=== PATIENT | male | born 1960 | race Caucasian/White ===

== ENCOUNTER 2020-03-14 16:39 | Inpatient (IN) | payer SELFPAY ==
[~2020-03-14 16:39] MED LIST: Iopamidol-370 76% 500 ML 1 ML ONE
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
[2020-03-14 18:02] LABS: #Basophils 0.1 thou/uL (0.0-0.2); #Eosinphils 0.1 thou/uL (0.0-0.7); #Monocytes 0.7 thou/uL (0.11-0.59); #Neutrophils 10.1 thou/uL (1.40-6.50); %Basophils 0.5 % (0.0-1.0); %Eosinophils 0.4 % (0.0-10.0); %Lymphocytes 15.7 % (21.0-51.0); %Monocytes 5.5 % (0.0-10.0); %Neutrophils 77.9 % (42.0-75.0); Hemoglobin 15.6 g/dL (14.0-18.0); Mean Corpuscular HGB CONC 36.4 g/dL (32.0-36.0); Mean Corpuscular Volume 90.6 fL (78.0-98.0); Mean Platelet Volume 7.2 fL (7.4-10.4); Platelet Count 242 thou/uL (130-400); RBC Distribution Width 11.6 % (11.5-14.5); Red Blood Cell (RBC) Count 4.75 mill/uL (4.70-6.10)
[2020-03-14] MEDS ORDERED: Lidocaine 1% (PF) 30 ML VIAL ONE (18:11)
[2020-03-14] MEDS ORDERED: Morphine 4 MG/ML VIAL ONE ×2 (18:12→23:51)
[2020-03-14] MEDS ORDERED: Ondansetron PF 4 MG/2 ML Vial ONE (18:12)
[2020-03-14 18:23] LABS: ALT (SGPT) 28 U/L (8-55); AST (SGOT) 31 U/L (5-34); Albumin 4.1 g/dL (3.4-4.8); Alkaline Phosphatase 64 U/L (40-110); Anion Gap 19 mmol/L (10-20); BUN (Urea Nitrogen) 29 mg/dL (8.4-25.7); Bilirubin, Total 0.8 mg/dL (0.2-1.2); Calc. Creatinine Clearance 0 mL/min (70-130); Calcium 9.5 mg/dL (7.8-10.44); Carbon Dioxide 19 mmol/L (23-31); Chloride 100 mmol/L (98-107); Estimated GFR-MDRD 44; Globulin 3.7 g/dL (2.4-3.5); Glucose 177 mg/dL (80-115); Lipase 58 U/L (8-78); Potassium 3.2 mmol/L (3.5-5.1); Protein, Total 7.8 g/dL (5.8-8.1); Sodium 135 mmol/L (136-145)
[2020-03-14 18:26] LABS: Bacteria/HPF None Seen HPF (None Seen); Bilirubin Negative (Negative); Blood, Urine 1+ (Negative); Clarity Clear (Clear); Glucose, Urine (Dipstick) Normal (Negative); Ketone, Urine Negative (Negative); Leukocyte Negative Leu/uL (Negative); Nitrite Negative (Negative); Protein, Urine (Dipstick) 50 mg/dL (Neg-Trace); Squamous Epithelial 0-3 HPF (0-3); Urobilinogen Normal mg/dL (Less than 2); WBC/HPF 21-50 HPF (0-3); pH, Urine 5.5 (5.0-9.0)
[2020-03-14 18:28] LABS: Specific Gravity, Urine 1.046 (1.002-1.036)
[2020-03-14 18:43] LABS: Phosphorus 3.9 mg/dL (2.3-4.7)
[2020-03-14] MEDS ORDERED: Boostrix 0.5 ML (Tdap) VIAL ONE (18:53)
[2020-03-14] MEDS ORDERED: Potassium Chloride 40 MEQ in Premix Bag 1 BAG IVPB SCH (19:30)
[2020-03-14 19:36] LABS: Amphetamine Not Detected (NotDetected); Barbiturates Screen Not Detected (NotDetected); Benzodiazepine Screen Not Detected (NotDetected); Cocaine Metabolite Screen Not Detected (NotDetected); Medtox Control Line Valid? VALID (VALID); Medtox Reader # READER 4; Methadone Not Detected (NotDetected); Methamphetamine Not Detected (NotDetected); Opiate Screen Not Detected (NotDetected); Oxycodone Screen Not Detected (NotDetected); Phencyclidine (PCP) Not Detected (NotDetected); THC/Cannabinoid Screen Detected (NotDetected); Tricyclic Screen Not Detected (NotDetected)
[2020-03-14] MEDS ORDERED: Dextrose 5% in Water 1,000 ML IV PRN (20:11)
[2020-03-14] MEDS ORDERED: Dextrose 50% Abboject 50 ML SYRINGE SLOW IVP PRN (20:11)
[2020-03-14] MEDS ORDERED: Ondansetron PF 4 MG/2 ML Vial IVP PRN (20:11)
[2020-03-14] MEDS ORDERED: traMADol HCl 50 MG TAB PO PRN (20:14)
[2020-03-14] MEDS ORDERED: Sodium Chloride 0.9% 1,000 ML IV SCH (20:15)
--- NOTE | 2020-03-14 20:32 | RAD ---
PORTABLE CHEST: 03/14/20 HISTORY: Injury. Comparison made to film earlier at 4:48 p.m. Numerous displaced left sided rib fractures again noted. No evidence of significant pneumothorax. No consolidation or infiltrate. No evidence of interval change. IMPRESSION: Stable chest. POS: AGW
--- NOTE | 2020-03-14 20:34 | RAD ---
RIGHT HAND: 03/14/20 Three views. HISTORY: Injury. FINDINGS/IMPRESSION: There are degenerative changes in the carpals and in the IP joints. No acute fracture identified. POS: AGW
[2020-03-14] MEDS ORDERED: Insulin Regular 300 UNITS/3 ML VIAL SC PRN ×2 (20:47)
[2020-03-14] MEDS ORDERED: Magnesium 2 GM/50 ML 2 GM in Premix Bag 1 BAG IVPB SCH (21:00)
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
[2020-03-14 22:10] LABS: Hemoglobin A1c 5.4 % (4.0-6.0)
[2020-03-14 22:16] LABS: Lactic Acid 2.9 mmol/L (0.5-2.2)
[2020-03-14] MEDS ORDERED: Potassium Chloride 40 MEQ in Sodium Chloride 0.9% 250 ML 250 ML IVPB SCH (23:45)
[2020-03-14] MEDS ORDERED: CEFAZOLIN 2 GM in Premix Bag 1 BAG IVPB SCH (23:45)
[2020-03-14] MEDS: Morphine 4 MG/ML VIAL SLOW IVP PRN (23:56)
[2020-03-15] MEDS ORDERED: Famotidine 20 MG TAB ONE (00:14)
[2020-03-15] MEDS ORDERED: Bacitracin 1 PK ONE ×2 (00:14→00:21)
[2020-03-15] MEDS ORDERED: Magnesium 2 GM/50 ML BAG (IN WATER) ONE (00:14)
[2020-03-15] MEDS ORDERED: traMADol HCl 50 MG TAB ONE (00:17)
[2020-03-15] MEDS ORDERED: Acetaminophen 500 MG TAB ONE (00:17)
[2020-03-15] MEDS ORDERED: Silver Sulfadiazine 50 GM TUBE ONE (00:21)
[2020-03-15] MEDS: Acetaminophen 500 MG TAB PO SCH ×5 (00:57→21:28)
[2020-03-15] MEDS: traMADol HCl 50 MG TAB PO SCH ×5 (00:59→21:27)
[2020-03-15] MEDS: Bacitracin 1 PK TOP SCH ×3 (01:00→21:28)
[2020-03-15] MEDS: Famotidine 20 MG TAB PO SCH ×3 (01:00→21:27)
[2020-03-15] MEDS: Senokot S 8.6-50 MG TAB PO SCH ×3 (01:00→21:27)
[2020-03-15] MEDS: Gabapentin 300 MG CAP PO SCH ×4 (01:00→21:27)
[2020-03-15] MEDS: Silver Sulfadiazine 50 GM TUBE TOP SCH ×3 (01:01→21:29)
[2020-03-15 05:21] VITALS: BMI 40.5
[2020-03-15 08:53] LABS: Anion Gap 18 mmol/L (10-20); BUN (Urea Nitrogen) 34 mg/dL (8.4-25.7); Calc. Creatinine Clearance 114 mL/min (70-130); Calcium 8.8 mg/dL (7.8-10.44); Carbon Dioxide 17 mmol/L (23-31); Chloride 108 mmol/L (98-107); Estimated GFR-MDRD 66; Glucose 149 mg/dL (80-115); Magnesium 2.4 mg/dL (1.6-2.6); Phosphorus 4.1 mg/dL (2.3-4.7); Potassium 4.9 mmol/L (3.5-5.1); Sodium 138 mmol/L (136-145)
[2020-03-15] MEDS: Morphine 4 MG/ML VIAL SLOW IVP PRN (09:12)
[2020-03-15] MEDS: Polyethylene Glycol 3350 17 GM Packet PO SCH (09:13)
[2020-03-15] MEDS: Enoxaparin Sodium 40 MG/0.4 ML SYRINGE SC SCH (09:45)
[2020-03-15] MEDS ORDERED: Ketorolac Tromethamine 30 MG/ML VIAL IVP SCH (09:45)
--- NOTE | 2020-03-15 09:55 | RAD ---
Exam: Chest one view HISTORY:Post traumatic changes in the left lung. Left-sided pleural effusion. Comparison: 03/14/2020 FINDINGS: Cardiac silhouette:Enlarged cardiac silhouette Aorta: Unremarkable Pulmonary vessels: Normal Costophrenic angles: Small bilateral effusions. LUNGS: Post traumatic changes in the left lower lobe. Pneumothorax: None Osseous abnormalities: No demonstration multiple left rib fractures. Left scapular fracture is also n oted. IMPRESSION: Stable posttraumatic changes in the left hemithorax.
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
[2020-03-15] MEDS: Ibuprofen 600 MG TAB PO SCH ×2 (10:43→17:44)
[2020-03-15 11:39] LABS: #Eosinphils 0.1 thou/uL (0.0-0.7); #Lymphocytes 2.3 thou/uL (1.20-3.40); #Monocytes 1.2 thou/uL (0.11-0.59); #Neutrophils 4.7 thou/uL (1.40-6.50); %Basophils 0.5 % (0.0-1.0); %Eosinophils 1.1 % (0.0-10.0); %Lymphocytes 27.9 % (21.0-51.0); %Neutrophils 56.6 % (42.0-75.0); Hemoglobin 13.6 g/dL (14.0-18.0); Mean Corpuscular HGB CONC 35.3 g/dL (32.0-36.0); Mean Corpuscular Hemoglobin 32.7 pg (27.0-31.0); Mean Corpuscular Volume 92.6 fL (78.0-98.0); Mean Platelet Volume 7.1 fL (7.4-10.4); Platelet Count 178 thou/uL (130-400); RBC Distribution Width 11.8 % (11.5-14.5); Red Blood Cell (RBC) Count 4.15 mill/uL (4.70-6.10); White Blood Cell (WBC) Count 8.4 thou/uL (4.8-10.8)
[2020-03-15 12:47] LABS: SARS-CoV-2 MS2 Positive; SARS-CoV-2 N Gene Negative; SARS-CoV-2 S Gene Negative; SARS-CoV-2 by NAA Not Detected (NotDetected); SARS-CoV-2 orf1ab Negative
[2020-03-15] MEDS: Atorvastatin Calcium 20 MG TAB PO SCH (21:26)
[2020-03-16] MEDS: Acetaminophen 500 MG TAB PO SCH ×2 (01:25→09:18)
[2020-03-16] MEDS: Ibuprofen 600 MG TAB PO SCH ×3 (01:25→18:14)
[2020-03-16] MEDS: Morphine 4 MG/ML VIAL SLOW IVP PRN (06:14)
[2020-03-16] MEDS: traMADol HCl 50 MG TAB PO SCH ×5 (06:17→20:10)
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
[2020-03-16] MEDS: Gabapentin 300 MG CAP PO SCH ×3 (09:19→20:10)
[2020-03-16] MEDS: Enoxaparin Sodium 40 MG/0.4 ML SYRINGE SC SCH (09:19)
[2020-03-16] MEDS: Bacitracin 1 PK TOP SCH ×2 (09:19→20:12)
[2020-03-16] MEDS: Famotidine 20 MG TAB PO SCH ×2 (09:19→20:10)
[2020-03-16] MEDS: Senokot S 8.6-50 MG TAB PO SCH ×2 (09:20→20:18)
[2020-03-16] MEDS: Polyethylene Glycol 3350 17 GM Packet PO SCH ×2 (09:20→09:24)
[2020-03-16] MEDS: Silver Sulfadiazine 50 GM TUBE TOP SCH ×2 (09:20→20:12)
[2020-03-16 13:56] LABS: #Eosinphils 0.1 thou/uL (0.0-0.7); #Lymphocytes 1.9 thou/uL (1.20-3.40); #Monocytes 0.7 thou/uL (0.11-0.59); #Neutrophils 4.7 thou/uL (1.40-6.50); %Basophils 0.5 % (0.0-1.0); %Eosinophils 0.9 % (0.0-10.0); %Lymphocytes 25.2 % (21.0-51.0); %Monocytes 9.8 % (0.0-10.0); %Neutrophils 63.6 % (42.0-75.0); Mean Corpuscular HGB CONC 35.7 g/dL (32.0-36.0); Mean Corpuscular Hemoglobin 33.5 pg (27.0-31.0); Mean Corpuscular Volume 93.7 fL (78.0-98.0); Mean Platelet Volume 7.1 fL (7.4-10.4); Platelet Count 179 thou/uL (130-400); RBC Distribution Width 11.5 % (11.5-14.5); Red Blood Cell (RBC) Count 3.89 mill/uL (4.70-6.10); White Blood Cell (WBC) Count 7.4 thou/uL (4.8-10.8)
[2020-03-16 14:06] LABS: Chloride 102 mmol/L (98-107); Potassium 3.6 mmol/L (3.5-5.1); Sodium 134 mmol/L (136-145)
[2020-03-16 14:07] LABS: Calcium 8.5 mg/dL (7.8-10.44); Glucose 128 mg/dL (80-115)
[2020-03-16 14:09] LABS: Anion Gap 17 mmol/L (10-20); Carbon Dioxide 19 mmol/L (23-31)
[2020-03-16 14:10] LABS: Phosphorus 3.6 mg/dL (2.3-4.7)
[2020-03-16 14:11] LABS: Calc. Creatinine Clearance 96 mL/min (70-130); Estimated GFR-MDRD 54
[2020-03-16 14:12] LABS: BUN (Urea Nitrogen) 34 mg/dL (8.4-25.7)
[2020-03-16 14:13] LABS: Magnesium 2.3 mg/dL (1.6-2.6)
[2020-03-16] MEDS ORDERED: Acetaminophen/Codeine 30-300mg Tablet PO PRN ×3 (14:14→23:44)
[2020-03-16] MEDS: Cyclobenzaprine 10 MG TAB PO PRN ×2 (14:32→20:19)
[2020-03-16] MEDS: Acetaminophen 325 MG TAB PO SCH ×2 (14:47→20:08)
[2020-03-16] MEDS: Atorvastatin Calcium 20 MG TAB PO SCH (20:10)
[2020-03-16] MEDS: Niacin 500 MG TAB PO SCH (20:10)
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
[2020-03-16] MEDS ORDERED: Sodium Chloride 0.9% 500 ML IV SCH (23:59)
[2020-03-17] MEDS: Acetaminophen/Codeine 30-300mg Tablet PO SCH ×4 (00:23→17:09)
[2020-03-17] MEDS: Acetaminophen 325 MG TAB PO SCH ×4 (02:48→20:46)
[2020-03-17] MEDS: Cyclobenzaprine 10 MG TAB PO PRN ×2 (05:14→17:09)
[2020-03-17] MEDS ORDERED: Lisinopril 20 MG TAB PO SCH (09:00)
[2020-03-17] MEDS: Gabapentin 300 MG CAP PO SCH ×3 (09:23→20:47)
[2020-03-17] MEDS: Enoxaparin Sodium 40 MG/0.4 ML SYRINGE SC SCH (09:23)
[2020-03-17] MEDS: Famotidine 20 MG TAB PO SCH ×2 (09:23→20:46)
[2020-03-17] MEDS: Silver Sulfadiazine 50 GM TUBE TOP SCH ×2 (09:24→20:50)
[2020-03-17] MEDS: Bacitracin 1 PK TOP SCH ×2 (09:24→20:49)
[2020-03-17] MEDS: Polyethylene Glycol 3350 17 GM Packet PO SCH (09:24)
[2020-03-17] MEDS: Senokot S 8.6-50 MG TAB PO SCH ×2 (09:28→20:46)
[2020-03-17 12:35] LABS: Anion Gap 19 mmol/L (10-20); BUN (Urea Nitrogen) 49 mg/dL (8.4-25.7); Calc. Creatinine Clearance 54 mL/min (70-130); Calcium 8.6 mg/dL (7.8-10.44); Carbon Dioxide 18 mmol/L (23-31); Chloride 99 mmol/L (98-107); Estimated GFR-MDRD 28; Glucose 110 mg/dL (80-115); Magnesium 2.7 mg/dL (1.6-2.6); Phosphorus 5.5 mg/dL (2.3-4.7); Potassium 3.9 mmol/L (3.5-5.1); Sodium 132 mmol/L (136-145)
[2020-03-17] MEDS: Niacin 500 MG TAB PO SCH (20:47)
[2020-03-17] MEDS: Atorvastatin Calcium 20 MG TAB PO SCH (20:48)
[2020-03-17] MEDS ORDERED: Sodium Chloride 0.9% 1,000 ML IV SCH (21:30)
[2020-03-18] MEDS: Acetaminophen/Codeine 30-300mg Tablet PO SCH ×5 (00:57→23:01)
[2020-03-18] MEDS: Cyclobenzaprine 10 MG TAB PO PRN ×3 (00:57→23:24)
[2020-03-18] MEDS: Sodium Chloride 0.9% 1,000 ML IV SCH ×3 (01:45→08:26)
[2020-03-18] MEDS: Acetaminophen 325 MG TAB PO SCH ×4 (02:42→21:23)
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
[2020-03-18 07:48] LABS: #Eosinphils 0.2 thou/uL (0.0-0.7); #Lymphocytes 2.7 thou/uL (1.20-3.40); #Monocytes 1.1 thou/uL (0.11-0.59); #Neutrophils 4.9 thou/uL (1.40-6.50); %Basophils 0.3 % (0.0-1.0); %Eosinophils 1.7 % (0.0-10.0); %Lymphocytes 30.2 % (21.0-51.0); %Monocytes 12.3 % (0.0-10.0); %Neutrophils 55.5 % (42.0-75.0); Hemoglobin 11.6 g/dL (14.0-18.0); Mean Corpuscular HGB CONC 35.1 g/dL (32.0-36.0); Mean Corpuscular Hemoglobin 32.4 pg (27.0-31.0); Mean Corpuscular Volume 92.3 fL (78.0-98.0); Mean Platelet Volume 7.9 fL (7.4-10.4); Platelet Count 143 thou/uL (130-400); RBC Distribution Width 11.3 % (11.5-14.5); Red Blood Cell (RBC) Count 3.58 mill/uL (4.70-6.10); White Blood Cell (WBC) Count 8.9 thou/uL (4.8-10.8)
[2020-03-18 07:56] LABS: Anion Gap 14 mmol/L (10-20); BUN (Urea Nitrogen) 42 mg/dL (8.4-25.7); Calc. Creatinine Clearance 105 mL/min (70-130); Carbon Dioxide 20 mmol/L (23-31); Chloride 102 mmol/L (98-107); Estimated GFR-MDRD 61; Glucose 121 mg/dL (80-115); Magnesium 2.1 mg/dL (1.6-2.6); Phosphorus 3.7 mg/dL (2.3-4.7); Potassium 3.8 mmol/L (3.5-5.1); Sodium 132 mmol/L (136-145)
[2020-03-18] MEDS: Heparin 5,000 UNITS/ML VIAL SC SCH ×3 (08:22→21:07)
[2020-03-18] MEDS: Senokot S 8.6-50 MG TAB PO SCH ×2 (08:22→21:07)
[2020-03-18] MEDS: Silver Sulfadiazine 50 GM TUBE TOP SCH ×2 (08:22→21:08)
[2020-03-18] MEDS: Bacitracin 1 PK TOP SCH ×2 (08:22→21:07)
[2020-03-18] MEDS: Famotidine 20 MG TAB PO SCH (08:22)
[2020-03-18] MEDS: Gabapentin 300 MG CAP PO SCH ×3 (08:22→21:06)
[2020-03-18] MEDS: Polyethylene Glycol 3350 17 GM Packet PO SCH (08:25)
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
[2020-03-18] MEDS: Niacin 500 MG TAB PO SCH (21:07)
[2020-03-18] MEDS: Atorvastatin Calcium 20 MG TAB PO SCH (21:07)
[2020-03-18] MEDS ORDERED: Lidocaine 5% Patch TD SCH (23:15)
[2020-03-18] MEDS: traMADol HCl 50 MG TAB PO PRN (23:23)
[2020-03-19] MEDS: Acetaminophen/Codeine 30-300mg Tablet PO SCH ×4 (00:05→18:13)
[2020-03-19] MEDS: Acetaminophen 325 MG TAB PO SCH ×4 (02:13→21:08)
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
[2020-03-19 04:38] LABS: Anion Gap 17 mmol/L (10-20); BUN (Urea Nitrogen) 27 mg/dL (8.4-25.7); Calc. Creatinine Clearance 140 mL/min (70-130); Calcium 8.1 mg/dL (7.8-10.44); Carbon Dioxide 17 mmol/L (23-31); Chloride 103 mmol/L (98-107); Estimated GFR-MDRD 84; Glucose 135 mg/dL (80-115); Magnesium 2.1 mg/dL (1.6-2.6); Potassium 3.8 mmol/L (3.5-5.1); Sodium 133 mmol/L (136-145)
[2020-03-19] MEDS: Bacitracin 1 PK TOP SCH ×2 (08:53→21:07)
[2020-03-19] MEDS: Gabapentin 300 MG CAP PO SCH ×3 (08:54→21:06)
[2020-03-19] MEDS: Silver Sulfadiazine 50 GM TUBE TOP SCH ×2 (08:56→21:17)
[2020-03-19] MEDS: Polyethylene Glycol 3350 17 GM Packet PO SCH (08:56)
[2020-03-19] MEDS: Senokot S 8.6-50 MG TAB PO SCH ×2 (08:56→21:06)
--- NOTE | 2020-03-19 09:26 | RAD ---
PORTABLE CHEST: Date: 03/19/2020 HISTORY: Cough. COMPARISON: 03/15/2020. FINDINGS: Heart size is prominent, but stable. Evidence of small effusions. Mild left basilar atelectasis. Uppe r lung arthur are clear and unchanged. The numerous displaced left-sided rib fractures are again note d. No evidence of significant pneumothorax. IMPRESSION: No acute interval change. POS: AGW
[2020-03-19 10:57] LABS: #Eosinphils 0.1 thou/uL (0.0-0.7); #Lymphocytes 1.5 thou/uL (1.20-3.40); %Basophils 0.5 % (0.0-1.0); %Eosinophils 1.8 % (0.0-10.0); %Lymphocytes 19.4 % (21.0-51.0); %Monocytes 12.6 % (0.0-10.0); %Neutrophils 65.8 % (42.0-75.0); Hemoglobin 12.7 g/dL (14.0-18.0); Mean Corpuscular Hemoglobin 33.3 pg (27.0-31.0); Mean Corpuscular Volume 95.2 fL (78.0-98.0); Mean Platelet Volume 7.5 fL (7.4-10.4); Platelet Count 183 thou/uL (130-400); Platelet Morphology Comment Appears Adequate; RBC Distribution Width 11.4 % (11.5-14.5); RBC Morphology Normal; Red Blood Cell (RBC) Count 3.82 mill/uL (4.70-6.10); White Blood Cell (WBC) Count 7.6 thou/uL (4.8-10.8)
[2020-03-19] MEDS ORDERED: Lidocaine Patch Removal 1 EACH TOP ONE (11:15)
[2020-03-19] MEDS: Heparin 5,000 UNITS/ML VIAL SC SCH ×3 (12:16→21:07)
[2020-03-19] MEDS ORDERED: Digoxin 0.5 MG/2 ML AMP SLOW IVP SCH ×2 (15:30→18:00)
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
[2020-03-19] MEDS ORDERED: Lidocaine 5% Patch TD SCH (21:00)
[2020-03-19] MEDS: Atorvastatin Calcium 20 MG TAB PO SCH (21:06)
[2020-03-19] MEDS: traMADol HCl 50 MG TAB PO PRN (21:06)
[2020-03-19] MEDS: Niacin 500 MG TAB PO SCH (21:08)
[2020-03-20] MEDS: Acetaminophen/Codeine 30-300mg Tablet PO SCH ×3 (00:10→11:17)
[2020-03-20] MEDS: Acetaminophen 325 MG TAB PO SCH ×3 (01:54→14:09)
--- NOTE | 2020-03-20 02:25 | PRG ---
DATE OF SERVICE: 03/19/2020 SUBJECTIVE: This is a 60-year-old gentleman, [place] [facility] [place] The patient was seen and evaluated this evening. There have been no acute changes. He is resting comfortably, sitting in a chair out of bed. He vocalized no complaints. Telemetry is stable from earlier. PLAN: Continue supportive care as ordered. The patient was seen and evaluated by Dr. Villasenor earlier today. Follow recommendations. Job ID: [id number]
[2020-03-20] MEDS ORDERED: Fish Oil 1,000 MG CAP PO SCH (09:00)
[2020-03-20] MEDS ORDERED: Digoxin 0.5 MG/2 ML AMP SLOW IVP SCH (09:00)
[2020-03-20] MEDS ORDERED: Lidocaine Patch Removal 1 EACH TOP SCH (09:00)
[2020-03-20] MEDS ORDERED: Aspirin 81 mg Enteric Coated Tablet PO SCH (09:00)
[2020-03-20] MEDS: Polyethylene Glycol 3350 17 GM Packet PO SCH (09:20)
[2020-03-20] MEDS: Bacitracin 1 PK TOP SCH (09:21)
[2020-03-20] MEDS: Gabapentin 300 MG CAP PO SCH ×2 (09:22→14:08)
[2020-03-20] MEDS: Senokot S 8.6-50 MG TAB PO SCH (09:22)
[2020-03-20] MEDS: Heparin 5,000 UNITS/ML VIAL SC SCH ×2 (09:22→14:09)
[2020-03-20] MEDS: Silver Sulfadiazine 50 GM TUBE TOP SCH (09:34)
[2020-03-20 16:01] VITALS: BP 143/89; TEMP 99.1
[2020-03-21] MEDS ORDERED: Digoxin 0.125 MG TAB PO SCH (09:00)
[2020-03-26] MEDS ORDERED: Apixaban 5 MG TAB PO SCH (21:00)
== END 2020-03-20 16:30 | disposition home or self-care (01) | DRG 564 ==
LOC: ERS 16:39 → ERHOLD 18:51 → 2NO 03-15 04:57
PROVIDERS: ADMIT Specialist; ATTEND Surgery
PROC: 0HQ1XZZ Repair Face Skin, External Approach (ICD-10-PCS; principal; 2020-03-14)
DX: S42.112A Displaced fracture of body of scapula, left shoulder, initial encounter for closed fracture (principal); S27.1XXA Traumatic hemothorax, initial encounter; S22.42XA Multiple fractures of ribs, left side, initial encounter for closed fracture; N17.9 Acute kidney failure, unspecified; E87.1 Hypo-osmolality and hyponatremia; I48.11 Longstanding persistent atrial fibrillation; E78.5 Hyperlipidemia, unspecified; S01.81XA Laceration without foreign body of other part of head, initial encounter; Z20.828 Contact with and (suspected) exposure to other viral communicable diseases; E78.00 Pure hypercholesterolemia, unspecified; I10 Essential (primary) hypertension; E11.9 Type 2 diabetes mellitus without complications; S40.812A Abrasion of left upper arm, initial encounter; S40.811A Abrasion of right upper arm, initial encounter; S20.419A Abrasion of unspecified back wall of thorax, initial encounter; S01.01XA Laceration without foreign body of scalp, initial encounter; E87.6 Hypokalemia; R74.02 Elevation of levels of lactic acid dehydrogenase [LDH]; Z23 Encounter for immunization; Z79.899 Other long term (current) drug therapy; Z79.82 Long term (current) use of aspirin; Z79.84 Long term (current) use of oral hypoglycemic drugs; V29.9XXA Motorcycle rider (driver) (passenger) injured in unspecified traffic accident, initial encounter
CPT/HCPCS: 12017; 36415; 36416; 70450; 71045; 71260; 72125; 74177; 80048; 80053; 80306; 80307; 81003; 81015; 82550; 83036; 83605; 83690; 83735; 84100; 84484; 85025; 86850; 86900; 86901; 87635; 90471; 90715; 93005; 93010; 93306; 94640; 96374; 96375; G0390; J0690; J1160; J1644; J1650; J1885; J2001; J2270; J2405; J3475; J3480; J7050; J7620; Q9967; U0003